=== PATIENT | male | born 2005 | race Caucasian/White ===

== ENCOUNTER 2025-02-15 18:18 | Inpatient (IN) ==
[2025-02-15 19:02] LABS: Appearance Urine Clear (Clear); Glucose Urine UA Negative (Negative)
[2025-02-15 19:09] LABS: Hematocrit (blood only) 47.4 % (42.0-52.0); Hemoglobin 16.6 g/dl (14.0-18.0); Immature Granulocytes # (auto) 0.06 K/uL (0.01-0.20); Immature Granulocytes % (auto) 0.4 %; Mean Corpuscular Hemoglobin 29.2 pg (25.0-34.0); Mean Corpuscular Volume 83.3 fL (80.0-100.0); Platelet Count 192 K/uL (130-400); RDW Standard Deviation 38.3 fL (36.4-46.3); Red Blood Count 5.69 M/uL (4.70-6.10); White Blood Count 16.79 K/ul (4.8-10.8)
[2025-02-15 19:22] LABS: Alanine Aminotransferase 12.0 U/L (7-52); Albumin Globulin Ratio 1.5 (0.9-2); Alkaline Phosphatase 56.0 U/L (34-104); Anion Gap 10.0 (3-11); Bilirubin,Total 2.6 mg/dl (0.2-1.0); Blood Urea Nitrogen 9.0 mg/dl (6-23); Calcium 9.7 mg/dl (8.6-10.3); Carbon Dioxide 28.0 mmol/L (21-32); Chloride 96.0 mmol/L (98-107); Creatinine Clr Calc Pharmacy 118.1 ml/min; Globulin 3.3 gm/dl (2.5-4.0); Glucose 105.0 mg/dl (70-99(Fasting)); Lipase 231.0 U/L (11-82); Potassium 3.5 mmol/L (3.5-5.1); Sodium 134.0 mmol/L (136-145); Total Protein 8.1 gm/dl (6.0-8.3)
--- NOTE | 2025-02-15 19:47 | Emergency Department Note ---
History of Present Illness General Chief complaint: Abdominal Pain Stated complaint: ABD PAIN Time Seen by Provider: 02/15/25 19:37 History of Present Illness Maximum Pain Intensity: 7 This is a 19-year-old male who presents to the emergency department via private vehicle with complaints of "abdominal pain". The patient notes yesterday began with vomiting and pain in the epigastric/left upper quadrant region. No trauma. No injury. No fever but did note that earlier today temp was around 99 F prior to being referred here by [facility]. The patient denies any pertinent past medical history, surgeries or allergies. The patient denies any history of similar episodes. Patient denies any drug use. No alcohol use. He does not smoke. Home Medications Medication Instructions Recorded Confirmed Type No Known Home Medications 02/15/25 02/15/25 History Allergies Allergy/AdvReac Type Severity Reaction Status Date / Time No Known Allergies Allergy Verified 02/15/25 21:39 Past Med/Surg History Problem List (Updated 02/16/25 @ 02:07 by Vishal Hancock PA-C) Pancreatitis (Acute) Social History Smoking Status: Never smoker Hx Alcohol Use: Yes Alcohol type: beer Hx Substance Use: No Preferred Language: Amharic Communication Ability: Effective Pig Breeder Required: No Beliefs That Will Affect Care: None Current Living Situation: Alone Other Information That Helps Us Care for You: No Feels Safe at Home: Yes Safety Concerns: Feels Safe At This Time Review of Systems A total of 10 systems reviewed and were otherwise negative Physical Exam Vital Signs Vital Signs - 24 hr 02/15/25 18:19 02/15/25 19:56 02/15/25 20:00 Temperature 36.9 C 37 C Temperature Source Temporal Artery Scan Oral Pulse Rate 70 Pulse Rate [Right] 78 84 Pulse Rate from SpO2 Sensor Pulse Rhythm [Right] Regular Respiratory Rate 16 18 22 Respiratory Effort / Characteristics Non-Labored Non-Labored Spontaneous Respiratory Depth Normal Normal Normal Respiratory Pattern Regular Blood Pressure 125/84 Blood Pressure [Left Arm] 137/82 Blood Pressure [Right Arm] 137/82 Blood Pressure Mean 97 Blood Pressure Mean [Left Arm] 100 Blood Pressure Mean [Right Arm] 100 Blood Pressure Position [Right Arm] Lying Pulse Oximetry 98 100 100 Oxygen Delivery Method Room Air Room Air Room Air Sepsis Recent Fever Within 48 Hours No Sepsis New/Unexplained Change in Mental Status No Sepsis Action Taken by Nursing No Action Required 02/15/25 20:16 02/15/25 21:09 02/15/25 21:12 Temperature Temperature Source Pulse Rate 72 81 Pulse Rate [Right] Pulse Rate from SpO2 Sensor 81 Pulse Rhythm [Right] Respiratory Rate 19 Respiratory Effort / Characteristics Respiratory Depth Respiratory Pattern Blood Pressure 131/89 Blood Pressure [Left Arm] Blood Pressure [Right Arm] Blood Pressure Mean 105 Blood Pressure Mean [Left Arm] Blood Pressure Mean [Right Arm] Blood Pressure Position [Right Arm] Pulse Oximetry 100 95 Oxygen Delivery Method Room Air Sepsis Recent Fever Within 48 Hours Sepsis New/Unexplained Change in Mental Status Sepsis Action Taken by Nursing 02/15/25 22:00 Temperature 36.9 C Temperature Source Oral Pulse Rate Pulse Rate [Right] 90 Pulse Rate from SpO2 Sensor Pulse Rhythm [Right] Respiratory Rate 18 Respiratory Effort / Characteristics Non-Labored Spontaneous Respiratory Depth Normal Respiratory Pattern Regular Blood Pressure Blood Pressure [Left Arm] 142/74 H Blood Pressure [Right Arm] Blood Pressure Mean Blood Pressure Mean [Left Arm] 96 Blood Pressure Mean [Right Arm] Blood Pressure Position [Right Arm] Pulse Oximetry 96 Oxygen Delivery Method Room Air Sepsis Recent Fever Within 48 Hours Sepsis New/Unexplained Change in Mental Status Sepsis Action Taken by Nursing VITAL SIGNS - Vital signs and nursing notes were reviewed. Stable, afebrile. GENERAL -19-year-old male appearing his stated age who is in no acute distress. Communicates well with provider and answers questions appropriately. SKIN - Without rashes. No meningeal or petechial rash. HEAD - NC/AT. EYES - PERRL with EOMI bilaterally. Sclera anicteric. EARS - No deformities of external structures noted on gross examination bilaterally. NOSE - Midline and without cyanosis. No epistaxis or purulent drainage noted. MOUTH/OROPHARYNX - Without perioral cyanosis. NECK - Neck with FROM. No nuchal rigidity. LUNGS - CTA CARDIAC - RRR ABDOMEN - Abdominal contour normal without pulsations or visible masses. BS normoactive all four quadrants. There is tenderness to palpation in the epigastric/left upper quadrant region. No palpable masses, hepatosplenomegaly, or ascites noted. EXTREMITIES - No clubbing or peripheral cyanosis. +5/5 strength noted in UE/LE bilaterally. NEUROLOGIC - Cranial nerves grossly intact. PSYCH -alert, oriented and pleasant on exam Course Administered Medications Hydromorphone HCl (Hydromorphone Inj 0.5 Mg/0.5 Ml Syr) 0.25 mg IV Q4H PRN PRN Reason: Moderate Pain (Scale 4, 5, 6) Stop: 03/02/25 00:03 Last Admin: 02/16/25 01:02 Dose: 0.25 mg Documented By: FRANCESCA Lactated Ringer's (Lr) 1,000 mls @ 125 mls/hr IV .Q8H NELSON Stop: 02/19/25 00:03 Last Admin: 02/16/25 00:43 Dose: 125 mls/hr Documented By: FRANCESCA Discontinued Medications Hydromorphone HCl (Hydromorphone Inj 0.5 Mg/0.5 Ml Syr) 0.5 mg IV NOW STA Stop: 02/15/25 21:05 Last Admin: 02/15/25 21:08 Dose: 0.5 mg Documented By: YFN Hydromorphone HCl (Hydromorphone Inj 0.5 Mg/0.5 Ml Syr) 0.25 mg IV NOW STA Stop: 02/15/25 22:23 Last Admin: 02/15/25 22:31 Dose: 0.25 mg Documented By: YFN Sodium Chloride (Nss) 1,000 mls @ 999 mls/hr IV .Q1H1M ONE Stop: 02/15/25 20:45 Last Infusion: 02/15/25 21:04 Dose: Infused Documented By: Admin: 02/15/25 20:03 Dose: 999 mls/hr Documented By: CLAUDINE Famotidine (Pepcid 20mg Iv Push) 20 mg in 5 mls @ 2.5 mls/min IV NOW STA Stop: 02/15/25 23:33 Last Admin: 02/16/25 00:42 Dose: 2.5 mls/min Documented By: FRANCESCA Ioversol (Optiray 320 100ml) 90 ml IV ONCE ONE Stop: 02/15/25 19:51 Last Admin: 02/15/25 19:51 Dose: 90 ml Documented By: KELSIE Morphine Sulfate (Morphine Sulfate 2 Mg/Ml Carp) 2 mg IV NOW STA Stop: 02/15/25 20:01 Last Admin: 02/15/25 20:03 Dose: 2 mg Documented By: TJS Ondansetron HCl (Ondansetron Inj 2 Mg/Ml 2 Ml Vial) 4 mg IV NOW STA Stop: 02/15/25 19:46 Last Admin: 02/15/25 20:03 Dose: 4 mg Documented By: CLAUDINE Medical Decision Making Laboratory Data 02/15/25 18:45 02/15/25 18:45 Lab Results 02/15/25 Range/Units 18:45 WBC 16.79 H (4.8-10.8) K/ul RBC 5.69 (4.70-6.10) M/uL Hgb 16.6 (14.0-18.0) g/dl Hct 47.4 (42.0-52.0) % MCV 83.3 (80.0-100.0) fL MCH 29.2 (25.0-34.0) pg MCHC 35.0 (32.0-36.0) g/dL RDW Std Deviation 38.3 (36.4-46.3) fL RDW Coeff of Julius 12.7 (11.5-14.5) % Plt Count 192 (130-400) K/uL MPV 11.3 (9.4-12.4) fL Immature Gran % (Auto) 0.4 % Neut % (Auto) 78.6 % Lymph % (Auto) 10.4 % [place] % (Auto) 10.4 % Eos % (Auto) 0.0 % Baso % (Auto) 0.2 % Neut # (Auto) 13.22 H (1.40-6.50) K/uL Lymph # (Auto) 1.74 (1.20-3.40) K/uL [place] # (Auto) 1.74 H (0.11-0.59) K/uL Eos # (Auto) 0.00 (0.00-0.50) K/uL Baso # (Auto) 0.03 (0.00-0.20) K/uL Immature Gran # (Auto) 0.06 (0.01-0.20) K/uL Sodium 134 L (136-145) mmol/L Potassium 3.5 (3.5-5.1) mmol/L Chloride 96 L (98-107) mmol/L Carbon Dioxide 28 (21-32) mmol/L Anion Gap 10 (3-11) BUN 9 (6-23) mg/dl Creatinine 0.91 (0.6-1.4) mg/dl Est Cr Clr Drug Dosing 118.1 ml/min eGFR 123.74 BUN/Creatinine Ratio 9.9 L (10-20) Glucose 105 H (70-99(Fasting)) mg/dl Calcium 9.7 (8.6-10.3) mg/dl Total Bilirubin 2.6 H (0.2-1.0) mg/dl AST 19 (13-39) U/L ALT 12 (7-52) U/L Alkaline Phosphatase 56 (34-104) U/L Total Protein 8.1 (6.0-8.3) gm/dl Albumin 4.8 (3.4-5.0) gm/dl Globulin 3.3 (2.5-4.0) gm/dl Albumin/Globulin Ratio 1.5 (0.9-2) Lipase 231 H (11-82) U/L Urine Color Yellow Urine Appearance Clear (Clear) Urine pH 6.5 (4.5-7.5) Ur Specific [place] 1.006 (1.000-1.030) Urine Protein Negative (Negative) Urine Glucose (UA) Negative (Negative) Urine Ketones 2+ H (Negative) Urine Blood Negative (Negative) Urine Nitrite Negative (Negative) Urine Bilirubin Negative (Negative) Urine Urobilinogen Negative (Negative) Ur Leukocyte Esterase Negative (Negative) Urine Comment Imaging Data Radiologist's Impression: Abdomen/Pelvis CT 02/15/25 19:45 EXAMINATION: CT of the abdomen and pelvis performed after the administration of IV contrast. TECHNIQUE: Helical CT images from the lung bases through the symphysis pubis were obtained with contrast. Coronal and sagittal reformatted images were generated at a workstation for further assessment. Dose reduction techniques were achieved by using automatic exposure control and/or adjustment of mA and/or kV according to patient size and/or use of iterative reconstruction technique. HISTORY: Left upper quadrant abdominal pain. COMPARISON: None. FINDINGS: Independent Contractor film demonstrates no abnormality. Lung windows demonstrate clear lungs. Soft tissue windows demonstrate likely normal right duplex kidney. This is normal variant. There is increased attenuation and peripancreatic fat stranding at the level of the tail. No mass, calcification or ductal dilatation. No discrete drainable fluid collection. Splenic artery and vein appear to be within normal limits. Small amount of simple free fluid dependent pelvis. Appendix is not identified with certainty. Remaining solid hollow organs of the abdomen and pelvis are within normal limits. Bone windows demonstrate no osseous abnormality. IMPRESSION: 1. Peripancreatic fat stranding and increased attenuation at the level of the tail most worrisome for pancreatitis. No mass, stones, ductal dilatation or drainable fluid collection. Etiology is uncertain. 2. Normal variant duplex right kidney. 3. Small amount of simple free fluid dependent pelvis. 4. Appendix not identified. Acute appendiceal disease, although not favored, cannot entirely be excluded in the appropriate clinical setting. Electronically signed by Jesus Hopson 02-15-2025 8:57 PM MDM Narrative Patient was seen and evaluated as above in room D04. Review was performed of triage nursing notes and vital signs. After obtaining a thorough history and physical examination the above work up was performed. Patient presents to us today for evaluation of abdominal pain. The patient is tender in the epigastric/left upper quadrant region. Patient appears to be in pain. Options of care were discussed with the patient. IV access was established. Labs were drawn. There is leukocytosis 16.79. No anemia. Mild hyponatremia 134. T. bili 2.6. Lipase elevated at 231. 2+ ketones in the urine, otherwise urine is negative. CT scan as above. Peripancreatic fat stranding and increased attenuation of the level of the tail most worrisome for pancreatitis. No mass, stones, ductal dilatation or drainable fluid collection. Normal variant duplex right kidney. Small amount of simple free fluid dependent pelvis. Appendix not seen but he is not tender in the right lower quadrant. Patient was medicated here with IV analgesia, IV antiemetics, IV fluids. Pain persisted and repeat analgesia dose was ordered and he was feeling better. I do believe that further evaluation and management in the inpatient setting is warranted. Case discussed with the hospitalist service, Dr. Magaña. Please refer to further documentation regarding his stay. GCS: 15 In the evaluation and treatment of this patient the following differential diagnoses were entertained: Gastritis, pancreatitis, ascending cholangitis, cholecystitis, perforation, among others Impression & Plan Pancreatitis Discharge Plan Visit Data Chief Complaint: Abdominal Pain Stated Complaint: ABD PAIN ED Provider: Bridger William ED Midlevel Provider: Vishal Hancock Discharge Problem: Pancreatitis Patient Disposition: Admitted As Inpatient Condition: Good Discharge Instructions Interventions: ED Discharge Assessment Last Done: 02/15/25 23:48
[2025-02-15] MEDS: OPTIRAY 320 100ml IV ONE (19:51)
[2025-02-15] MEDS: ONDANSETRON INJ 2 MG/ML 2 ML VIAL IV STA (20:03)
[2025-02-15] MEDS: SODIUM CHLORIDE 0.9% 1,000 ML IV ONE (20:03)
[2025-02-15] MEDS: MoRPHine SULFATE 2 MG/ML CARP IV STA (20:03)
--- NOTE | 2025-02-15 20:57 | CT Scan Report ---
EXAMINATION: CT of the abdomen and pelvis performed after the administration of IV contrast. TECHNIQUE: Helical CT images from the lung bases through the symphysis pubis were obtained with contrast. Coronal and sagittal reformatted images were generated at a workstation for further assessment. Dose reduction techniques were achieved by using automatic exposure control and/or adjustment of mA and/or kV according to patient size and/or use of iterative reconstruction technique. HISTORY: Left upper quadrant abdominal pain. COMPARISON: None. FINDINGS: Reference Test Clerk film demonstrates no abnormality. Lung windows demonstrate clear lungs. Soft tissue windows demonstrate likely normal right duplex kidney. This is normal variant. There is increased attenuation and peripancreatic fat stranding at the level of the tail. No mass, calcification or ductal dilatation. No discrete drainable fluid collection. Splenic artery and vein appear to be within normal limits. Small amount of simple free fluid dependent pelvis. Appendix is not identified with certainty. Remaining solid hollow organs of the abdomen and pelvis are within normal limits. Bone windows demonstrate no osseous abnormality. IMPRESSION: 1. Peripancreatic fat stranding and increased attenuation at the level of the tail most worrisome for pancreatitis. No mass, stones, ductal dilatation or drainable fluid collection. Etiology is uncertain. 2. Normal variant duplex right kidney. 3. Small amount of simple free fluid dependent pelvis. 4. Appendix not identified. Acute appendiceal disease, although not favored, cannot entirely be excluded in the appropriate clinical setting. Electronically signed by Jesus Hopson 02-15-2025 8:57 PM
[2025-02-15] MEDS: HYDROmorphone INJ 0.5 MG/0.5 ML SYR IV STA ×2 (21:08→22:31)
--- NOTE | 2025-02-15 23:32 | History & Physical Report ---
Date of Service February 15, 2025 Assessment & Plan (1) Pancreatitis: Plan: 19-year-old male with no significant past medical history comes because of abdominal pain. Since yesterday patient is having severe abdominal pain. Mostly in the upper abdomen associated with nausea and vomiting. Somewhat constipated. Denies any fevers. Micturating okay. The pain is radiating to chest. Denies any shortness of breath. No headache. No runny nose or sore throat. No cough. Hemodynamics are okay. Patient says he generally does not drink alcohol. But last weekend on Wednesday and Wednesday he drank 10-15 beers as his friends were visiting. His father has history of pancreatitis and cholecystectomy. Pancreatitis Presents with abdominal pain and nausea and vomiting CT scan with IV contrast shows pancreatitis. Appendix is not identified. Lipase 231. Total bilirubin 2.6. AST ALT alkaline phosphatase are okay Will keep him n.p.o., IV fluids, IV antibiotics., IV pain meds as needed IV Pepcid Follow repeat labs in a.m. GI consult in a.m. for further recommendation Leukocytosis Possible reactive Follow repeat labs DVT prophylaxis SCDs for now Disposition Medical floor Full code. History of Present Illness Chief Complaint: Abdominal pain Primary Care Provider: NO PCP 19-year-old male with no significant past medical history comes because of abdominal pain. Since yesterday patient is having severe abdominal pain. Mostly in the upper abdomen associated with nausea and vomiting. Somewhat constipated. Denies any fevers. Micturating okay. The pain is radiating to chest. Denies any shortness of breath. No headache. No runny nose or sore throat. No cough. Hemodynamics are okay. Patient says he generally does not drink alcohol. But last weekend on Wednesday and Wednesday he drank 10-15 beers as his friends were visiting. His father has history of pancreatitis and cholecystectomy. Past medical history. As mentioned above Past surgical history. No surgical history on file. Social history. No smoking. Does not drink alcohol regularly. No drug use. Family history. Father had pancreatitis. Allergies Allergy/AdvReac Type Severity Reaction Status Date / Time No Known Allergies Allergy Verified 02/15/25 21:39 Home Medications Medication Instructions Recorded Confirmed Type No Known Home Medications 02/15/25 02/15/25 History Past Med/Surg History Problem List (Updated 02/16/25 @ 02:07 by Vishal Hancock PA-C) Pancreatitis (Acute) Social History Smoking Status: Never smoker Hx Alcohol Use: Yes Alcohol type: beer Hx Substance Use: No Preferred Language: Algerian Communication Ability: Effective Mounter Brass Wind Instruments Required: No Beliefs That Will Affect Care: None Current Living Situation: Alone Other Information That Helps Us Care for You: No Feels Safe at Home: Yes Safety Concerns: Feels Safe At This Time Review of Systems Review of Systems: All systems reviewed & are unremarkable except as noted in HPI & below Physical Exam Physical Exam: General- Not in distress Head- atraumatic Eyes- PERRL. ENT- oropharynx clear Neck- supple, no JVD. Lungs- clear to auscultation no wheezing or crackles Heart- regular rate and rhythm; no murmur, no gallop. Abdomen- normal bowel sounds, soft, diffuse tender, no rigidity, no distension Extremities- no pretibial edema, no erythema seen Neuro- alert, oriented PERRL, no facial palsy; no dysarthria; moves extremities Results & Data Results & Data Vital Signs (Past 12 Hours) Vital Signs Temp Pulse Pulse Resp BP BP BP 02/15/25 22:00 36.9 C 90 18 142/74 H 02/15/25 21:12 02/15/25 21:09 81 19 131/89 02/15/25 20:16 72 02/15/25 20:00 37 C 84 22 137/82 02/15/25 19:56 78 18 137/82 02/15/25 18:19 36.9 C 70 16 125/84 Pulse Ox O2 Del Method 02/15/25 22:00 96 Room Air 02/15/25 21:12 95 Room Air 02/15/25 21:09 100 02/15/25 20:16 02/15/25 20:00 100 Room Air 02/15/25 19:56 100 Room Air 02/15/25 18:19 98 Room Air Diagnostic Findings Laboratory Results WBC 16.79 K/ul (4.8-10.8) H 02/15/25 18:45 RBC 5.69 M/uL (4.70-6.10) 02/15/25 18:45 Hgb 16.6 g/dl (14.0-18.0) 02/15/25 18:45 Hct 47.4 % (42.0-52.0) 02/15/25 18:45 MCV 83.3 fL (80.0-100.0) 02/15/25 18:45 MCH 29.2 pg (25.0-34.0) 02/15/25 18:45 MCHC 35.0 g/dL (32.0-36.0) 02/15/25 18:45 RDW Std Deviation 38.3 fL (36.4-46.3) 02/15/25 18:45 RDW Coeff of Julius 12.7 % (11.5-14.5) 02/15/25 18:45 Plt Count 192 K/uL (130-400) 02/15/25 18:45 MPV 11.3 fL (9.4-12.4) 02/15/25 18:45 Immature Gran % (Auto) 0.4 % 02/15/25 18:45 Neut % (Auto) 78.6 % 02/15/25 18:45 Lymph % (Auto) 10.4 % 02/15/25 18:45 [place] % (Auto) 10.4 % 02/15/25 18:45 Eos % (Auto) 0.0 % 02/15/25 18:45 Baso % (Auto) 0.2 % 02/15/25 18:45 Neut # (Auto) 13.22 K/uL (1.40-6.50) H 02/15/25 18:45 Lymph # (Auto) 1.74 K/uL (1.20-3.40) 02/15/25 18:45 [place] # (Auto) 1.74 K/uL (0.11-0.59) H 02/15/25 18:45 Eos # (Auto) 0.00 K/uL (0.00-0.50) 02/15/25 18:45 Baso # (Auto) 0.03 K/uL (0.00-0.20) 02/15/25 18:45 Immature Gran # (Auto) 0.06 K/uL (0.01-0.20) 02/15/25 18:45 Sodium 134 mmol/L (136-145) L 02/15/25 18:45 Potassium 3.5 mmol/L (3.5-5.1) 02/15/25 18:45 Chloride 96 mmol/L (98-107) L 02/15/25 18:45 Carbon Dioxide 28 mmol/L (21-32) 02/15/25 18:45 Anion Gap 10 (3-11) 02/15/25 18:45 BUN 9 mg/dl (6-23) 02/15/25 18:45 Creatinine 0.91 mg/dl (0.6-1.4) 02/15/25 18:45 Est Cr Clr Drug Dosing 118.1 ml/min 02/15/25 18:45 eGFR 123.74 02/15/25 18:45 BUN/Creatinine Ratio 9.9 (10-20) L 02/15/25 18:45 Glucose 105 mg/dl (70-99(Fasting)) H 02/15/25 18:45 Calcium 9.7 mg/dl (8.6-10.3) 02/15/25 18:45 Total Bilirubin 2.6 mg/dl (0.2-1.0) H 02/15/25 18:45 AST 19 U/L (13-39) 02/15/25 18:45 ALT 12 U/L (7-52) 02/15/25 18:45 Alkaline Phosphatase 56 U/L (34-104) 02/15/25 18:45 Total Protein 8.1 gm/dl (6.0-8.3) 02/15/25 18:45 Albumin 4.8 gm/dl (3.4-5.0) 02/15/25 18:45 Globulin 3.3 gm/dl (2.5-4.0) 02/15/25 18:45 Albumin/Globulin Ratio 1.5 (0.9-2) 02/15/25 18:45 Lipase 231 U/L (11-82) H 02/15/25 18:45 Urine Color Yellow 02/15/25 18:45 Urine Appearance Clear (Clear) 02/15/25 18:45 Urine pH 6.5 (4.5-7.5) 02/15/25 18:45 Ur Specific [place] 1.006 (1.000-1.030) 02/15/25 18:45 Urine Protein Negative (Negative) 02/15/25 18:45 Urine Glucose (UA) Negative (Negative) 02/15/25 18:45 Urine Ketones 2+ (Negative) H 02/15/25 18:45 Urine Blood Negative (Negative) 02/15/25 18:45 Urine Nitrite Negative (Negative) 02/15/25 18:45 Urine Bilirubin Negative (Negative) 02/15/25 18:45 Urine Urobilinogen Negative (Negative) 02/15/25 18:45 Ur Leukocyte Esterase Negative (Negative) 02/15/25 18:45 Urine Comment 02/15/25 18:45 Impressions Abdomen/Pelvis CT 02/15/25 19:45 EXAMINATION: CT of the abdomen and pelvis performed after the administration of IV contrast. TECHNIQUE: Helical CT images from the lung bases through the symphysis pubis were obtained with contrast. Coronal and sagittal reformatted images were generated at a workstation for further assessment. Dose reduction techniques were achieved by using automatic exposure control and/or adjustment of mA and/or kV according to patient size and/or use of iterative reconstruction technique. HISTORY: Left upper quadrant abdominal pain. COMPARISON: None. FINDINGS: Publications Writer film demonstrates no abnormality. Lung windows demonstrate clear lungs. Soft tissue windows demonstrate likely normal right duplex kidney. This is normal variant. There is increased attenuation and peripancreatic fat stranding at the level of the tail. No mass, calcification or ductal dilatation. No discrete drainable fluid collection. Splenic artery and vein appear to be within normal limits. Small amount of simple free fluid dependent pelvis. Appendix is not identified with certainty. Remaining solid hollow organs of the abdomen and pelvis are within normal limits. Bone windows demonstrate no osseous abnormality. IMPRESSION: 1. Peripancreatic fat stranding and increased attenuation at the level of the tail most worrisome for pancreatitis. No mass, stones, ductal dilatation or drainable fluid collection. Etiology is uncertain. 2. Normal variant duplex right kidney. 3. Small amount of simple free fluid dependent pelvis. 4. Appendix not identified. Acute appendiceal disease, although not favored, cannot entirely be excluded in the appropriate clinical setting. Electronically signed by Jesus Hopson 02-15-2025 8:57 PM Code Status & VTE Plan VTE Prophylaxis Plan VTE Prophylaxis will be ordered: Yes
[2025-02-16] MEDS ORDERED: HYDROmorphone INJ 0.5 MG/0.5 ML SYR IV PRN (00:04)
[2025-02-16] MEDS: FAMOTIDINE 20MG IV PUSH 20 MG/5 ML SYR IV STA (00:42)
[2025-02-16] MEDS: LACTATED RINGER'S 1,000 ML IV SCH (00:43)
[2025-02-16] MEDS: HYDROmorphone INJ 0.5 MG/0.5 ML SYR IV PRN ×2 (01:02→09:04)
[2025-02-16 07:02] VITALS: O2SAT 97
[2025-02-16 07:56] LABS: Hematocrit (blood only) 43.3 % (42.0-52.0); Hemoglobin 15.1 g/dl (14.0-18.0); Immature Granulocytes # (auto) 0.08 K/uL (0.01-0.20); Immature Granulocytes % (auto) 0.5 %; Mean Corpuscular Hemoglobin 29.3 pg (25.0-34.0); Mean Corpuscular Volume 83.9 fL (80.0-100.0); Platelet Count 164 K/uL (130-400); RDW Standard Deviation 38.6 fL (36.4-46.3); Red Blood Count 5.16 M/uL (4.70-6.10); White Blood Count 14.94 K/ul (4.8-10.8)
[2025-02-16 08:11] LABS: Alanine Aminotransferase 8.0 U/L (7-52); Alkaline Phosphatase 49.0 U/L (34-104); Anion Gap 9.0 (3-11); Bilirubin,Total 2.0 mg/dl (0.2-1.0); Blood Urea Nitrogen 9.0 mg/dl (6-23); Calcium 8.8 mg/dl (8.6-10.3); Carbon Dioxide 27.0 mmol/L (21-32); Chloride 99.0 mmol/L (98-107); Creatinine Clr Calc Pharmacy 135.0 ml/min; Glucose 84.0 mg/dl (70-99(Fasting)); Lipase 194.0 U/L (11-82); Magnesium 1.8 mg/dl (1.7-2.4); Potassium 3.5 mmol/L (3.5-5.1); Sodium 135.0 mmol/L (136-145); Total Protein 6.6 gm/dl (6.0-8.3)
[2025-02-16] MEDS: ONDANSETRON INJ 2 MG/ML 2 ML VIAL IV PRN (08:51)
[2025-02-16] MEDS: FAMOTIDINE 20MG IV PUSH 20 MG/5 ML SYR IV SCH (08:51)
--- NOTE | 2025-02-16 09:30 | Gastrointestinal Consultation ---
Date of Consultation February 16, 2025 Assessment & Plan (1) Pancreatitis: ----D-x-m-t-i-n-u-e- -v-j-r-t-s-h-s-i-v-e- -I-V- -f-l-u-i-d- -h-y-d- -u-i-y-i-o-n- ----H-y-d-t-i-n-u-e- -p-a-i-n- -a-u-f-t-r-o-l- -p-e-r- -w-o-k-m-a-r-y- -t-e-a-m- ----S-h-j-t-i-n-u-e- -N-P-O- -j-m-f-t-u-s- -w-i-t-h- -d-s-e-w-e-x-e-m-e-n-t- -t-o- -c-l-e-a-r- -n-a-y-u-i-d-s- -w-h-e-n- -h-e- -t-s-m-t-e-t-t-e-s- ----O-b-a-i-n- -l-i-p-i-d- -p-a-n-e-l- ----B-c-n-s-i-d-e-r- -U-S- -e-w-b-w-q-h-a-d-d-e-r- ----W-o-u-l-d- -g-i-n-d-m-c-e-n-d- -g-o-y-o-h-o-l- -n-b-a-z-e-d-n-c-e- -a--s- -t-h-i-s- -d-o-e-s- -s-e-e-m- -t-o- -b-e- -t-h-e- -i-d-c-e-l-y- -g-l-a-i-l-t-j-l-u-i-n-g- -q-k-r-t-o-r- CONSULT WAS CANCELLED BY HOSPITALIST History of Present Illness Reason for Consultation: Pancreatitis Attending Physician: Greyson Gupta MD History of Present Illness Patient is a 19 yo male who is currently admitted due to pancreatitis. He notes that he developed severe epigastric pain, nausea & vomiting on Wednesday02/14/25. He felt as though he could not eat or drink enough so he eventually presented to the ED. In the ED, he was found to have leukocytosis and a CT scan showed pancreatitis particularly of the pancreatic tail. No visible gallstones on CT scan. T bili is 2.0. D bili 0.5. Lipase 231 initially and now 194. He has no history of elevated cholesterol. No known biliary history. He still has his gallbladder. No previous episodes. No new medications/supplements. No recent viral illnesses to his knowledge. He notes that last week he did drink 6-7 alcoholic beverages on Wednesday night (02/09/25). He notes a family history of pancreatitis and cholecystectomy (father). Allergies Allergy/AdvReac Type Severity Reaction Status Date / Time No Known Allergies Allergy Verified 02/15/25 21:39 Home Medications Medication Instructions Recorded Confirmed Type No Known Home Medications 02/15/25 02/15/25 History Patient History Social History Smoking Status: Never smoker Hx Alcohol Use: Yes Alcohol type: beer Hx Substance Use: No Preferred Language: Citizen Of [place] Communication Ability: Effective Gimp Tacker Required: No Beliefs That Will Affect Care: None Current Living Situation: Alone Other Information That Helps Us Care for You: No Feels Safe at Home: Yes Safety Concerns: Feels Safe At This Time Assistive Devices: None Review of Systems Constitutional: no fever and no chills Gastrointestinal: + abdominal pain Psychiatric: no problem reported Physical Exam Constitutional: well developed Respiratory: normal respiratory effort Gastrointestinal (Abdomen): normal bowel sounds, soft, nontender, no hepatosplenomegaly Psychiatric: Orientation: alert and oriented x 3 Results & Data Vital Signs (Past 12 Hours) Vital Signs Temp Pulse Resp BP Pulse Ox O2 Del Method 02/16/25 07:01 37.0 C 79 15 142/80 H 97 Room Air 02/16/25 00:16 36.3 C L 89 16 152/80 H 96 Room Air 02/15/25 22:00 36.9 C 90 18 142/74 H 96 Room Air PG Care Time/CCT Total # of Minutes Spent Total Time Spent with Patient: Total time spent is greater than 50% in coordination of care (as documented) at patient's floor/unit and/or counseling patient: Coding Level of Care Code 64410 IN/OBS CONSULT LVL 4,60M Diagnoses Pancreatitis K85.90
[2025-02-16 09:57] LABS: Cholesterol 88.0 mg/dl (0-200); HDL Cholesterol 61.0 mg/dl; Triglycerides 36.0 mg/dl (0-150)
[2025-02-16] MEDS: KETOROLAC TROMETHAMINE 15 MG/ML VIAL IV SCH (14:46)
[2025-02-16 15:29] VITALS: RESP 16
--- NOTE | 2025-02-16 17:14 | Hospitalist Progress Note ---
Date of Service February 16, 2025 Assessment & Plan (1) Pancreatitis: Plan: 19-year-old male with no significant past medical history comes because of abdominal pain. Since yesterday patient is having severe abdominal pain. Mostly in the upper abdomen associated with nausea and vomiting. Somewhat constipated. Denies any fevers. Micturating okay. The pain is radiating to chest. Denies any shortness of breath. No headache. No runny nose or sore throat. No cough. Hemodynamics are okay. Patient says he generally does not drink alcohol. But last weekend on Wednesday and Wednesday he drank 10-15 beers as his friends were visiting. His father has history of pancreatitis and cholecystectomy. #Acute Uncomplicated Pancreatitis -Presents with abdominal pain and nausea and vomiting -CT scan with IV contrast shows pancreatitis. Appendix is not identified. -Lipase 231. Total bilirubin 2.6. AST ALT alkaline phosphatase are okay -likely incited alcohol use Plan: -advance diet as tolerated, full liquids for dinner tonight -start IV toradol scheduled, oxycodone and dilaudid prn for additional pain control -continue IV fluids I spent a total of 50 minutes in direct patient care, including [id number] time with the patient and/or family, reviewing medical records, ordering and reviewing diagnostic tests, and coordinating care with other healthcare providers. This time includes: history taking, physical examination, medical decision making, counseling, ECG interpretation, imaging interpretation, lab interpretation, orders, and education, excluding time spent in the performance of separately billed services. Admission and Anticipated Discharge Date Admission Date: February 15, 2025 Subjective Patient seen and examined at bedside. Father present as well. Patient doing ok today, tolerating clear liquid diet ok. States he still has quite a bit of abdominal pain. Review of Systems Review of Systems: CONSTITUTIONAL: Patient denies fevers, chills, sweats and weight changes. EYES: Patient denies any visual symptoms. EARS, NOSE, AND THROAT: No difficulties with hearing. No symptoms of rhinitis or sore throat. CARDIOVASCULAR: Patient denies chest pains, palpitations, orthopnea and paroxysmal nocturnal dyspnea. RESPIRATORY: No dyspnea on exertion, no wheezing or cough. GI: abdominal pain : No urinary hesitancy or dribbling. No nocturia or urinary frequency. No abnormal urethral discharge. MUSCULOSKELETAL: No myalgias or arthralgias. NEUROLOGIC: No chronic headaches, no seizures. Patient denies numbness, tingling or weakness. PSYCHIATRIC: Patient denies problems with mood disturbance. No problems with anxiety. ENDOCRINE: No excessive urination or excessive thirst. DERMATOLOGIC: Patient denies any rashes or skin changes. Physical Exam Physical Exam: Gen: A&O 3 NAD HEENT: NCAT, EOMI, not icteric. External ears normal. No rhinorrhea. Moist mucous membranes. Neck: Supple, full range of motion, no observable masses, No meningeal sign. Lungs: No Respiratory distress. CV: RRR, no edema. Abdomen: tenderness to palpation in epigastric region MSK: No joint swelling, no redness. Skin: No rashes, petechiae, lesions. Normal color per patient. Neuro: Normal Gait, Grossly intact. Psych: Appropriate for situation. Results & Data Results & Data Vital Signs (Past 12 Hours) Vital Signs Temp Pulse Resp BP Pulse Ox O2 Del Method 02/16/25 15:29 37.0 C 86 16 120/73 97 Room Air 02/16/25 07:01 37.0 C 79 15 142/80 H 97 Room Air Laboratory Results -personally reviewed, lipase somewhat elevated, leukocytosis noted improved from yesterday, indirect bilirubinemia noted
--- NOTE | 2025-02-17 00:24 | Ultrasound Report ---
EXAM: US abdomen limited CLINICAL HISTORY: assess GB TECHNIQUE: Limited ultrasound of the liver and gallbladder was performed in greyscale and Doppler. Multiple images were obtained in transverse and longitudinal planes. COMPARISON: CT dated 02/15/2025. FINDINGS: Liver: Liver size: 16.4 cm. Liver parenchyma appears hypoechoic with prominent portal radicles, with a possible starry jose appearance No evidence of focal lesions, cysts, or masses. Hepatic vasculature appears normal. Gallbladder: Gallbladder size: The Gallbladder is visualized and appears normal in size and shape. No gallstones, wall thickening, or pericholecystic fluid noted. No evidence of gallbladder wall edema or signs of acute cholecystitis. Biliary Tree: Common bile duct diameter: 4.3 mm. Common bile duct is within normal limits in caliber and not dilated. No evidence of choledocholithiasis or biliary obstruction. Minimal free perihepatic fluid. 1.3 cm right parapelvic cyst. The right kidney shows normal parenchymal thickness and corticomedullary differentiation. It appears enlarged with an elongated pelvicalyceal system likely due to renal duplex with malrotated inferior moiety [corresponding to recent CT study]. No documented stones or blood pressure changes. The tail of the pancreas appears bulky; however, no duct dilatation is seen, and the rest of the pancreas appears within normal limits. IMPRESSION: 1. Liver parenchyma appears hypoechoic with prominent portal radicles, with a possible starry jose appearance. Advise clinical and LFT correlation to rule out the possibility of acute hepatitis 2. The tail of the pancreas appears bulky; however, no duct dilatation is seen, and the rest of the pancreas appears within normal limits. It could be a normal anatomical variant; however, considering the history of pancreatitis advised further evalution with lab tests like amylase and lipase 3. No evidence of cholelithiasis and cholecystitis 4. 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 A right parapelvic cyst is noted. 5. Minimal free perihepatic fluid. stable 6. Correlate with clinical findings. Electronically signed by Tereso Garcia 02-16-2025 9:31 PM
[2025-02-17 06:09] LABS: Hematocrit (blood only) 39.0 % (42.0-52.0); Hemoglobin 13.3 g/dl (14.0-18.0); Mean Corpuscular Hemoglobin 29.2 pg (25.0-34.0); Mean Corpuscular Volume 85.5 fL (80.0-100.0); Platelet Count 146 K/uL (130-400); RDW Standard Deviation 39.7 fL (36.4-46.3); Red Blood Count 4.56 M/uL (4.70-6.10); White Blood Count 10.48 K/ul (4.8-10.8)
[2025-02-17 06:36] LABS: Anion Gap 5.0 (3-11); Blood Urea Nitrogen 6.0 mg/dl (6-23); Calcium 8.4 mg/dl (8.6-10.3); Carbon Dioxide 31.0 mmol/L (21-32); Chloride 100.0 mmol/L (98-107); Creatinine Clr Calc Pharmacy 125.7 ml/min; Glucose 95.0 mg/dl (70-99(Fasting)); Magnesium 1.9 mg/dl (1.7-2.4); Potassium 3.6 mmol/L (3.5-5.1); Sodium 136.0 mmol/L (136-145)
[2025-02-17 08:14] VITALS: BP 105/68; PULSE 78; TEMP 98.8
--- NOTE | 2025-02-17 17:16 | Discharge Summary ---
Discharge Summary Date of Service February 17, 2025 Principal Dx & Hospital Course #1 = Principal Diagnosis (1) Pancreatitis: 19-year-old male with no significant past medical history comes because of abdominal pain. Since yesterday patient is having severe abdominal pain. Mostly in the upper abdomen associated with nausea and vomiting. Somewhat constipated. Denies any fevers. Micturating okay. The pain is radiating to chest. Denies any shortness of breath. No headache. No runny nose or sore throat. No cough. Hemodynamics are okay. Patient says he generally does not drink alcohol. But last weekend on Wednesday and Wednesday he drank 10-15 beers as his friends were visiting. His father has history of pancreatitis and cholecystectomy. #Acute Uncomplicated Pancreatitis -Presents with abdominal pain and nausea and vomiting -CT scan with IV contrast shows pancreatitis. Appendix is not identified. -Lipase 231. Total bilirubin 2.6. AST ALT alkaline phosphatase are okay -likely incited alcohol use Plan: -advance diet as tolerated, full liquids for dinner tonight -start IV toradol scheduled, oxycodone and dilaudid prn for additional pain control -continue IV fluids Notes For Next Care Provider 19-year-old male with no significant past medical history comes because of abdominal pain. CT imaging revealed pancreatitis, admitted to medicine. On medicine, gave toradol and fluids, dilaudid with improvement in pain. Diet progressed steadily. On 02/17/2025, patient tolerating PO and solids well, requested discharge, medically stable for discharge home. To do: [ ] alcohol cessation Medication Changes From Visit -see below Admission HPI Per Admitting Provider 19-year-old male with no significant past medical history comes because of abdominal pain. Since yesterday patient is having severe abdominal pain. Mostly in the upper abdomen associated with nausea and vomiting. Somewhat constipated. Denies any fevers. Micturating okay. The pain is radiating to chest. Denies any shortness of breath. No headache. No runny nose or sore throat. No cough. Hemodynamics are okay. Patient says he generally does not drink alcohol. But last weekend on Wednesday and Wednesday he drank 10-15 beers as his friends were visiting. His father has history of pancreatitis and cholecystectomy. Past medical history. As mentioned above Past surgical history. No surgical history on file. Social history. No smoking. Does not drink alcohol regularly. No drug use. Family history. Father had pancreatitis. Discharge Exam Gen: A&O 3 NAD HEENT: NCAT, EOMI, not icteric. External ears normal. No rhinorrhea. Moist mucous membranes. Neck: Supple, full range of motion, no observable masses, No meningeal sign. Lungs: No Respiratory distress. CV: RRR, no edema. Abdomen: tenderness to palpation in epigastric region MSK: No joint swelling, no redness. Skin: No rashes, petechiae, lesions. Normal color per patient. Neuro: Normal Gait, Grossly intact. Psych: Appropriate for situation. Updated Medication List Medication Instructions Recorded Confirmed Type acetaminophen 325 mg tablet 650 mg (2 x 325 mg) PO Q6H PRN 02/17/25 Rx (Tylenol) pain #30 tabs meloxicam 7.5 mg tablet 7.5 mg PO DAILY PRN long acting 02/17/25 Rx pain relief #14 tabs ondansetron 4 mg disintegrating 4 mg PO Q8H PRN nausea and 02/17/25 Rx tablet vomiting 4 days #14 tabs oxycodone 5 mg tablet 5 mg PO Q4 PRN pain #14 tabs 02/17/25 Rx Hospital Stay Data Consultations 02/15/25 21:09 ED Decision to Admit Stat Diagnostic Imagining Performed 02/15/25 19:45 CT abd pelvis IV con only Stat 02/16/25 13:13 US abdomen limited Routine Pending Results Patient Have Any Pending Studies at Discharge: No Discharge Instructions Given to Patient (Per Discharging Provider) 1. Please follow up with PCP. 2. Please abstain from alcohol for next month and use sparingly in the future. 1 episode of pancreatitis makes you more likely to have a second occurance. 3. Take medications as prescribed. 4. Stay hydrated! Total Time Total Time Spent Total Time Spent (In Minutes): I spent a total of 35 minutes in direct patient care, including [id number] time with the patient and/or family, reviewing medical records, ordering and reviewing diagnostic tests, and coordinating care with other healthcare providers. This time includes: history taking, physical examination, medical decision making, counseling, ECG interpretation, imaging interpretation, lab interpretation, orders, and education, excluding time spent in the performance of separately billed services.
== END 2025-02-17 15:44 | disposition home or self-care (01) | DRG 440 ==
LOC: ED 18:18 → 3W 23:24
DX: K85.90 Acute pancreatitis without necrosis or infection, unspecified